=== PATIENT | male | born 1980 | race Caucasian/White ===

== ENCOUNTER → 2023-10-17 15:57 | Outpatient (REF) | payer OTHER, SELFPAY | LOC: RAD 15:57 | PROVIDERS: ATTENDING PHYSICIAN Family Medicine | DX: M79.661 Pain in right lower leg (principal) | CPT/HCPCS: 93971 ==

== ENCOUNTER → 2023-12-15 08:50 | Outpatient (REF) | payer OTHER, SELFPAY ==
[2023-12-15 10:05] LABS: % Basophils 0.7 % (0-2); % Eosinophils 2.5 % (0-6); % Immature Granulocytes 0.2 % (0-0.5); % Lymphocytes 35.2 % (20.5-51.1); % Monocytes 7.1 % (1.7-9.3); % Neutrophils 54.3 % (42.2-75.2); Absolute Eosinophils 0.1 10^3/uL (0-0.7); Absolute Lymphocytes 1.4 10^3/uL (1.2-3.4); Absolute Monocytes 0.3 10^3/uL (0.1-0.6); Absolute Neutrophils 2.2 10^3/uL (1.4-6.5); Hematocrit 38.4 % (39.0-52.0); Hemoglobin 12.8 g/dL (13.0-18.0); Mean Corp Hgb Conc. 33.3 g/dL (33.0-37.0); Mean Corpuscular Volume 90.1 fL (80.0-94.0); Mean Platelet Volume 9.7 fL (7.4-10.4); Nucleated Red Blood Cells % 0 % (-); Platelet Count 175 10^3/uL (130-400); Red Blood Cell Count 4.26 10^6/uL (4.70-6.10); Red Cell Dist. Width 12.7 % (11.5-14.5); White Blood Cell Count 4.1 10^3/uL (4.8-10.8)
[2023-12-15 10:56] LABS: ALT (SGPT) 29 U/L (0-50); AST (SGOT) 30 U/L (17-59); Alkaline Phosphatase 76 U/L (38-126); Blood Urea Nitrogen 11 mg/dl (9-20); Calcium 9.6 mg/dl (8.4-10.2); Carbon Dioxide 30 mmol/L (22-30); Chloride 102 mmol/L (98-107); Glucose 94 mg/dl (70-99); Potassium 4.2 mmol/L (3.5-5.1); Sodium 137 mmol/L (135-145); Total Bilirubin 0.7 mg/dl (0.2-1.3); Total Protein 6.2 g/dl (6.3-8.2); eGFR > 60.00
[2023-12-15 11:03] LABS: FSH 35.8 mIU/ml (1.55-9.74); Prolactin 16.4 ng/ml (3.7-17.9)
[2023-12-15 11:24] LABS: Erythrocyte Sed Rate 13 mm/hour (0-20)
[2023-12-16 08:45] LABS: % Free Testosterone 1.6 % (1.6-2.9); Free Testosterone 8 pg/mL (47-244); Sex Hormone Binding Globulin 36 nmol/L (17-56); Total Testosterone 53 ng/dL (300-890)
== END ==
LOC: REG 08:50
PROVIDERS: ATTENDING PHYSICIAN Internal Medicine Endocrinology, Diabetes & Metabolism; FAMILY PHYSICIAN Family Medicine; REFERRING PHYSICIAN Internal Medicine Rheumatology
DX: L40.59 Other psoriatic arthropathy (principal); E29.1 Testicular hypofunction
CPT/HCPCS: 36415; 80053; 83001; 83002; 84146; 84270; 84402; 84403; 85025; 85652; 86140

== ENCOUNTER → 2024-05-10 07:44 | Outpatient (REF) | payer OTHER, SELFPAY ==
[2024-05-10 08:55] LABS: % Basophils 0.8 % (0-2); % Eosinophils 2.8 % (0-6); % Immature Granulocytes 0.3 % (0-0.5); % Lymphocytes 39.4 % (20.5-51.1); % Monocytes 10.3 % (1.7-9.3); % Neutrophils 46.4 % (42.2-75.2); Absolute Eosinophils 0.1 10^3/uL (0-0.7); Absolute Lymphocytes 1.5 10^3/uL (1.2-3.4); Absolute Monocytes 0.4 10^3/uL (0.1-0.6); Absolute Neutrophils 1.8 10^3/uL (1.4-6.5); Hematocrit 40.5 % (39.0-52.0); Hemoglobin 13.7 g/dL (13.0-18.0); Mean Corp Hgb Conc. 33.8 g/dL (33.0-37.0); Mean Corpuscular Hgb 30.2 pg (27.0-31.0); Mean Corpuscular Volume 89.2 fL (80.0-94.0); Mean Platelet Volume 9.6 fL (7.4-10.4); Nucleated Red Blood Cells % 0 % (-); Platelet Count 197 10^3/uL (130-400); Red Blood Cell Count 4.54 10^6/uL (4.70-6.10); Red Cell Dist. Width 12.6 % (11.5-14.5); White Blood Cell Count 3.9 10^3/uL (4.8-10.8)
[2024-05-10 09:30] LABS: ALT (SGPT) 35 U/L (0-50); AST (SGOT) 35 U/L (17-59); Albumin 4.2 g/dl (3.5-5.0); Alkaline Phosphatase 71 U/L (38-126); Blood Urea Nitrogen 9 mg/dl (9-20); Calcium 9.9 mg/dl (8.4-10.2); Carbon Dioxide 33 mmol/L (22-30); Chloride 101 mmol/L (98-107); Glucose 88 mg/dl (70-99); Potassium 4.5 mmol/L (3.5-5.1); Sodium 141 mmol/L (135-145); Total Bilirubin 0.7 mg/dl (0.2-1.3); Total Protein 6.5 g/dl (6.3-8.2); eGFR > 60.00
[2024-05-10 10:08] LABS: Erythrocyte Sed Rate 11 mm/hour (0-20)
[2024-05-12 07:05] LABS: Quantiferon Mitogen minus NIL 9.99 IU/mL; Quantiferon NIL 0.01 IU/mL; Quantiferon Plus TB1 minus NIL 0.04 IU/mL (<=0.34); Quantiferon Plus TB2 minus NIL 0.01 IU/mL (<=0.34); Quantiferon TB Gold Plus Negative (Negative)
== END ==
LOC: REG 07:44
PROVIDERS: ATTENDING PHYSICIAN Internal Medicine Rheumatology; FAMILY PHYSICIAN Family Medicine; REFERRING PHYSICIAN Urology
DX: L40.59 Other psoriatic arthropathy (principal); E29.1 Testicular hypofunction
CPT/HCPCS: 36415; 80053; 84403; 85025; 85652; 86140; 86480

== ENCOUNTER 2024-08-13 10:21 | Emergency (ER) | payer OTHER, SELFPAY ==
[2024-08-13 10:38] VITALS: BP 125/87
--- NOTE | 2024-08-13 12:28 | ED.GENMED ---
History of Present Illness
General
Chief Complaint: Musculo-Skeletal Complaint
Source: patient
Exam Limitations: none
Time Seen by Provider: 08/13/24 11:40
Nursing documentation reviewed up to this point in time: agreed with
History of Present Illness
History of Present Illness:
44-year-old male presents for evaluation after slip and fall with left wrist injury. Landed on outstretched hand. No head trauma or any other injuries.
Past History
Past History
ED Past Medical History: Other (Psoriatic arthritis, Crohn's)
ED Past Surgical History: None
Social History
Tobacco: Smoker
Review of Systems
Review of Systems
All Other Systems: ROS reviewed and negative except as documented in HPI and ROS
Musculoskeletal: Reports other (Wrist pain)
Phy Exam
Physical Exam
Physical Exam:
General: Well appearing and non-toxic
HEENT: protecting airway
Neck: appears supple
CV: No evidence of cyanosis
Resp: No accessory muscle use
Abd: Non-distended
Extremities: No deformities, mild tenderness dorsum of the left wrist over the radial head as well as in the anatomic snuffbox; some mild tenderness over the proximal aspect of the second and third metacarpals; pain with supination and pronation of
the wrist as well as with extension of the wrist but he is able to flex; strong palpable radial pulse; no tenderness of the left elbow or shoulder; rest of extremities atraumatic
Neuro: Alert
Psych: Normal affect
Skin: Intact
Scores
Heart Failure Risk
Heart Failure Risk Score: Not Applicable
Heart Score for Chest Pain Patients
STEMI patient?: Not applicable
Withdrawal Assessment of Alcohol
Withdrawal Assessment Completed?: Not applicable
Course
Orders/Labs/Results
Orders:
Orders
08/13/24 10:40
CR Hand - Left Min 3 Views Urgent
Comment:
Reason For Exam: injury, pain
CR Wrist - Left Min 3 Views Urgent
Comment:
Reason For Exam: injury, pain
08/13/24 12:15
Splints/Slings/Crut- Treatment ONCE
Location: Left
Type of Splint: Thimb Spica
Vital Signs
Initial and Last Documented VS:
Initial Vital Signs
Temp Pulse Resp BP Pulse Ox
36.7 C 71 16 125/87 98
08/13/24 10:38 08/13/24 10:38 08/13/24 10:38 08/13/24 10:38 08/13/24 10:38
Last Documented Vital Signs
Temp Pulse Resp BP Pulse Ox
36.7 C 71 16 125/87 98
08/13/24 10:38 08/13/24 10:38 08/13/24 10:38 08/13/24 10:38 08/13/24 10:38
MDM/Problems Addressed
Differential Diagnosis Includes:
Sprain, fracture
MDM/Problems Addressed:
44-year-old male presents after a fall onto outstretched hand complaining of left wrist pain. X-ray of the hand and wrist reviewed independently by me show no acute fractures however he is tender in the anatomic snuffbox. Suspect likely wrist
sprain but will place in a thumb spica splint in case of occult scaphoid fracture. Referral to hand surgery. Discussed RICE. All questions answered.
*Radiology
Radiology exam reviewed: preliminary read by ED provider and radiology read reviewed
*Pulse Oximetry
Patient hypoxic: no
*Critical Care Note
Total Time (30-74mins, 75-104mins- exclusive of procedures): Not Applicable
Data Reviewed
Source: patient
ED Attending Note
-
Portions of this chart may have been created with voice recognition software.� Occasional wrong word or��sound alike� substitutions may have occurred due to the inherent limitations of voice recognition software.
Discharge Plan
Departure
Patient Disposition: Home (Routine Discharge)
Date of Disposition: 08/13/24
Time of Disposition: 11:51
Patient with high blood pressure during this ER visit?: No
Discharge Problem:
Sprain of wrist, left
Instructions: Sprain (DC)
Prescriptions:
No Action
lansoprazole [Prevacid] 30 MG capsule,delayed release(DR/EC)
30 mg PO DAILY
oxycodone 15 MG tablet
15 mg PO TID
trazodone 150 MG tablet
150 mg PO HS
Referrals:
Familia Figueredo MD [Active] - Call in 1-3 days for appt
Stand Alone Forms: Return to Work
Activity Restrictions/Additional Instructions:
Thank you for visiting the Emergency Department at [facility].
1. Please schedule a follow up appointment as directed. Call first thing tomorrow morning to make an appointment.
2. If indicated, please take your medications as instructed and indicated on discharge paperwork.
3. If any of your symptoms do not improve, or persist, or become more severe within 6-12 hours, please return to the emergency department for further care.
4. Please return to the emergency department if you develop a headache, neck pain/stiffness, fever greater than 100.4F, chest pain, shortness of breath, persistent nausea, vomiting, slurred speech, difficulty walking, numbness/tingling, weakness,
signs of infection or any other symptoms that are worrisome to you.
Please call [phone] if you have any questions.
Interventions
Interventions:
*Risk Screen - Suicide Last Done: 08/13/24 10:38
*General Assessment Last Done: 08/13/24 10:38
ED- Fall Risk Assessment Last Done: 08/13/24 12:15
*Nursing Disposition Last Done: 08/13/24 12:32
ED-Musculoskeletal Assessment Last Done: 08/13/24 12:15
Discharge Date and Time
Discharge Date/Time: 08/13/24 12:32
Print Language: SWEDISH
== END 2024-08-13 12:32 | disposition home or self-care (01) ==
LOC: EMR 10:21
PROVIDERS: EMERGENCY PHYSICIAN Emergency Medicine; FAMILY PHYSICIAN Family Medicine
DX: S63.502A Unspecified sprain of left wrist, initial encounter (principal); W01.0XXA Fall on same level from slipping, tripping and stumbling without subsequent striking against object, initial encounter; L40.50 Arthropathic psoriasis, unspecified; K50.90 Crohn's disease, unspecified, without complications; F17.200 Nicotine dependence, unspecified, uncomplicated
CPT/HCPCS: 99283; 73110; 73130